=== PATIENT | male | born 1970 | race Caucasian/White ===

== ENCOUNTER 2020-07-09 17:20 | Inpatient (IN) | payer OTHER ==
[~2020-07-09] VITALS: Ht 188 cm; Wt 143.8 kg
[2020-07-09] MEDS ORDERED: SODIUM CHLORIDE 0.9% 500 ML IV ONE (18:00)
[2020-07-09] MEDS ORDERED: dilTIAZem 25 MG/5 ML VIAL IV ONE ×3 (18:00→20:15)
[2020-07-09 18:57] LABS: Basophils # (auto) 0.1 10 ^3/uL (0-0.2); Basophils % (auto) 0.8 % (0.0-2.0); Eosinophils # (auto) 0.1 10 ^3/uL (0-0.8); Eosinophils % (auto) 0.8 % (0.0-7.0); Hematocrit 46.7 % (41.0-53.0); Hemoglobin 15.4 g/dL (13.5-17.5); Lymphocytes # (auto) 3.2 10 ^3/uL (0.4-5.4); Lymphocytes % (auto) 20.1 % (10.0-50.0); Mean Corpuscular Hgb Conc. 33.1 g/dL (32.0-36.0); Mean Corpuscular Volume 81.6 fL (80.0-100.0); Monocytes # (auto) 1.3 10 ^3/uL (0-1.3); Neutrophils # (auto) 11.3 10 ^3/uL (1.6-8.6); Neutrophils % (auto) 70.3 % (37.0-80.0); Nucleated Red Blood Cells % 0.1 %; Red Blood Cells 5.72 10^6/uL (4.5-5.90); White Blood Cell 16.1 10^3/uL (4.4-10.8)
[2020-07-09 19:12] LABS: Calcium 9.2 mg/dL (8.5-10.1); Potassium 4.3 mmol/L (3.5-5.1)
[2020-07-09 19:18] LABS: INR 1.17 (0.9-1.15); Partial Thromboplastin Time 22.6 sec (23.0-31.2)
[2020-07-09 19:20] LABS: Albumin 3.6 g/dL (3.4-5.0); BUN/Creatinine Ratio 20.6
[2020-07-09] MEDS ORDERED: dilTIAZem 125mg/125ml BAG KIT 125 ML IV ONE (20:15)
[2020-07-09] MEDS ORDERED: MORPHINE SULFATE INJECTION 2 MG/ML SYRG IV PRN (21:30)
[2020-07-09] MEDS ORDERED: ONDANSETRON HCL 4 MG/2 ML VIAL IV PRN (21:30)
[2020-07-09] MEDS ORDERED: dilTIAZem 125mg/125ml BAG KIT 125 ML IV SCH (21:30)
[2020-07-09] MEDS ORDERED: ACETAMINOPHEN 325 MG TAB PO PRN (21:30)
[2020-07-09] MEDS ORDERED: NITROGLYCERIN 0.4 MG SL TAB SL PRN (21:30)
[2020-07-09] MEDS ORDERED: TEMAZEPAM 15 MG CAP PO PRN (21:30)
[2020-07-09] MEDS: ATORVASTATIN 20 MG TAB PO SCH (22:09)
[2020-07-09] MEDS: METOPROLOL TARTRATE 25 MG TAB PO SCH (22:10)
[2020-07-09] MEDS: FAMOTIDINE 20 MG TAB PO SCH (22:10)
[2020-07-09] MEDS ORDERED: FUROSEMIDE 20 MG/2 ML VIAL IV ONE (22:15)
[2020-07-09 23:10] VITALS: BP 128/73
[2020-07-09 23:23] VITALS: BP 128/73
[2020-07-09 23:30] VITALS: BP 139/75
[2020-07-10] VITALS (14 sets, daily range): BP systolic 111–141; BP diastolic 67–98
[2020-07-10 05:42] LABS: Basophils # (auto) 0.1 10 ^3/uL (0-0.2); Basophils % (auto) 1.1 % (0.0-2.0); Eosinophils # (auto) 0.1 10 ^3/uL (0-0.8); Eosinophils % (auto) 0.5 % (0.0-7.0); Hematocrit 43.4 % (41.0-53.0); Hemoglobin 14.6 g/dL (13.5-17.5); Lymphocytes # (auto) 2.4 10 ^3/uL (0.4-5.4); Lymphocytes % (auto) 18.8 % (10.0-50.0); Mean Corpuscular Hemoglobin 27.4 pg (28.0-32.0); Mean Corpuscular Hgb Conc. 33.7 g/dL (32.0-36.0); Mean Corpuscular Volume 81.4 fL (80.0-100.0); Monocytes % (auto) 7.4 % (0.0-12.0); Neutrophils # (auto) 9.3 10 ^3/uL (1.6-8.6); Neutrophils % (auto) 72.2 % (37.0-80.0); Nucleated Red Blood Cells % 0.1 %; Red Blood Cells 5.33 10^6/uL (4.5-5.90); Red Cell Distribution Width 14.9 % (11.8-14.3); White Blood Cell 12.9 10^3/uL (4.4-10.8)
[2020-07-10 05:52] LABS: Potassium 4.3 mmol/L (3.5-5.1)
[2020-07-10 06:12] LABS: Albumin 3.4 g/dL (3.4-5.0); BUN/Creatinine Ratio 19.4; Bilirubin, Total 1.8 mg/dL (0.2-1.0); Calcium 8.6 mg/dL (8.5-10.1); Total Protein 6.5 g/dL (6.4-8.2)
[2020-07-10] MEDS: METOPROLOL TARTRATE 25 MG TAB PO SCH ×2 (08:13→22:00)
[2020-07-10] MEDS: FAMOTIDINE 20 MG TAB PO SCH ×2 (08:14→22:00)
[2020-07-10] MEDS ORDERED: DIGOXIN (250MCG/ML) 2 ML AMPULE IV ONE (09:00)
[2020-07-10] MEDS: ENOXAPARIN SOD 150 MG/1 ML SYRINGE SC SCH ×2 (09:34→22:00)
[2020-07-10] MEDS: DIGOXIN (250MCG/ML) 2 ML AMPULE IV SCH ×3 (09:35→23:00)
[2020-07-10 09:54] LABS: Cholesterol 146 mg/dL (< 200); HDL Cholesterol 32 mg/dL (40-59); LDL Cholesterol 108 mg/dL (< 100); Triglycerides 70 mg/dL (< 150)
[2020-07-10] MEDS ORDERED: FUROSEMIDE 40 MG TAB PO SCH (10:00)
[2020-07-10] MEDS ORDERED: ASPirin 81 mg TAB PO SCH (10:00)
[2020-07-10] MEDS ORDERED: ADENOSINE 126 MG in GIVE UN-DILUTED 0 ML IV ONE (12:30)
[2020-07-10] MEDS ORDERED: IOHEXOL 350 MG/ML 100ML IJ ONE (12:52)
[2020-07-10 14:14] LABS: Urine Bacteria NONE SEEN /hpf (None Seen); Urine Blood Negative /uL (Negative); Urine Budding Yeast OCCASIONAL /hpf (None Seen); Urine Specific Gravity 1.009 (1.001-1.035); Urine WBC 1 /hpf (0 - 3)
[2020-07-10 14:27] LABS: Alcohol, Urine < 3.0 mg/dL (0-10); Amphetamine Screen, Urine NEGATIVE (NEGATIVE); Barbiturate Scree,Urine NEGATIVE (NEGATIVE); Benzodiazephine Screen, Urine NEGATIVE (NEGATIVE); Cannabinoid Screen, Urine NEGATIVE (NEGATIVE); Cocaine Screen, Urine NEGATIVE (NEGATIVE); Opiate Scree,Urine NEGATIVE (NEGATIVE); Phencyclidine Screen, Urine NEGATIVE (NEGATIVE)
[2020-07-10] MEDS ORDERED: OPTISON 3ml Vial for INJ IV ONE (16:05)
[2020-07-10] MEDS: ATORVASTATIN 20 MG TAB PO SCH (22:00)
[2020-07-11 05:00] VITALS: BP 127/87
[2020-07-11 05:21] LABS: Basophils # (auto) 0.1 10 ^3/uL (0-0.2); Basophils % (auto) 0.9 % (0.0-2.0); Eosinophils # (auto) 0.1 10 ^3/uL (0-0.8); Eosinophils % (auto) 1.1 % (0.0-7.0); Hematocrit 44.5 % (41.0-53.0); Hemoglobin 15.1 g/dL (13.5-17.5); Lymphocytes # (auto) 1.9 10 ^3/uL (0.4-5.4); Lymphocytes % (auto) 16.7 % (10.0-50.0); Mean Corpuscular Hemoglobin 27.2 pg (28.0-32.0); Mean Corpuscular Hgb Conc. 33.9 g/dL (32.0-36.0); Mean Corpuscular Volume 80.4 fL (80.0-100.0); Monocytes # (auto) 0.9 10 ^3/uL (0-1.3); Monocytes % (auto) 7.6 % (0.0-12.0); Neutrophils # (auto) 8.5 10 ^3/uL (1.6-8.6); Neutrophils % (auto) 73.7 % (37.0-80.0); Nucleated Red Blood Cells % 0.1 %; Red Blood Cells 5.53 10^6/uL (4.5-5.90); Red Cell Distribution Width 14.7 % (11.8-14.3); White Blood Cell 11.5 10^3/uL (4.4-10.8)
[2020-07-11 05:34] LABS: INR 1.14 (0.9-1.15); Partial Thromboplastin Time 26.7 sec (23.0-31.2)
[2020-07-11 06:02] LABS: Albumin 3.3 g/dL (3.4-5.0); BUN/Creatinine Ratio 15.4; Calcium 8.4 mg/dL (8.5-10.1); Potassium 3.9 mmol/L (3.5-5.1)
[2020-07-11 06:05] LABS: Bilirubin, Total 1.6 mg/dL (0.2-1.0); Total Protein 6.5 g/dL (6.4-8.2)
[2020-07-11 09:00] VITALS: BP 143/89
[2020-07-11] MEDS ORDERED: SODIUM CHLORIDE 0.9% 1,000 ML IV SCH ×2 (09:45→13:15)
[2020-07-11] MEDS: ENOXAPARIN SOD 150 MG/1 ML SYRINGE SC SCH ×2 (10:00→21:38)
[2020-07-11] MEDS ORDERED: ACETYLCYSTEINE ORAL for CIN 20%(200MG/ML) 4ML PO ONE (10:00)
[2020-07-11] MEDS: FUROSEMIDE 40 MG/4 ML VIAL IV SCH (10:00)
[2020-07-11] MEDS: METOPROLOL TARTRATE 25 MG TAB PO SCH ×2 (11:36→21:38)
[2020-07-11] MEDS: DIGOXIN 0.125 MG TAB PO SCH (11:36)
[2020-07-11] MEDS: ASPirin 81 mg TAB PO SCH (11:36)
[2020-07-11] MEDS: FAMOTIDINE 20 MG TAB PO SCH ×2 (11:37→21:38)
[2020-07-11] MEDS ORDERED: IODIXANOL 320MG/ML 100ML BTL IV ONE (12:31)
[2020-07-11] MEDS ORDERED: LIDOCAINE 2%HCL (LOCAL ANESTH.) INJ 20ML MDV ONE (12:31)
[2020-07-11 13:00] VITALS: BP 135/93
[2020-07-11] MEDS ORDERED: VERAPAMIL 2.5MG/ML INJ 2ML VIAL IV ONE (13:04)
[2020-07-11] MEDS ORDERED: HEPARIN SODIUM (PORCINE) 5000 UNITS/ML 1ML VIAL ONE (13:04)
[2020-07-11] MEDS ORDERED: fentaNYL CITRATE 100 MCG/2 ML VL ONE (13:04)
[2020-07-11] MEDS ORDERED: MIDAZOLAM HCL 2MG/2ML 2ml VIAL (1mg/ml) ONE (13:04)
[2020-07-11] MEDS ORDERED: ANGIOMAX 250 MG VIAL IV ONE (13:04)
[2020-07-11] MEDS ORDERED: SODIUM CHL 0.9% 0 ML ONE (13:04)
[2020-07-11 17:00] VITALS: BP 155/87
[2020-07-11] MEDS: ATORVASTATIN 20 MG TAB PO SCH (21:37)
[2020-07-11] MEDS: ACETYLCYSTEINE ORAL for CIN 20%(200MG/ML) 4ML PO SCH (21:38)
[2020-07-11 22:47] VITALS: BP_SYST 133; BP_SYST 163; BP_DIAS 76; BP_DIAS 81
[2020-07-12 05:21] VITALS: BP 129/94
[2020-07-12 05:30] LABS: Basophils # (auto) 0.1 10 ^3/uL (0-0.2); Eosinophils # (auto) 0.1 10 ^3/uL (0-0.8); Eosinophils % (auto) 1.3 % (0.0-7.0); Hematocrit 45.7 % (41.0-53.0); Hemoglobin 15.2 g/dL (13.5-17.5); Lymphocytes # (auto) 2.1 10 ^3/uL (0.4-5.4); Lymphocytes % (auto) 20.1 % (10.0-50.0); Mean Corpuscular Hgb Conc. 33.3 g/dL (32.0-36.0); Monocytes # (auto) 0.8 10 ^3/uL (0-1.3); Neutrophils # (auto) 7.1 10 ^3/uL (1.6-8.6); Neutrophils % (auto) 69.6 % (37.0-80.0); Nucleated Red Blood Cells % 0.5 %; Red Blood Cells 5.64 10^6/uL (4.5-5.90); Red Cell Distribution Width 14.7 % (11.8-14.3); White Blood Cell 10.2 10^3/uL (4.4-10.8)
[2020-07-12 05:39] LABS: Potassium 3.9 mmol/L (3.5-5.1)
[2020-07-12 05:45] LABS: BUN/Creatinine Ratio 14.9; Calcium 8.5 mg/dL (8.5-10.1)
[2020-07-12 09:17] VITALS: BP 152/86
[2020-07-12] MEDS: FUROSEMIDE 40 MG/4 ML VIAL IV SCH (09:39)
[2020-07-12] MEDS: DIGOXIN 0.125 MG TAB PO SCH (09:40)
[2020-07-12] MEDS: ASPirin 81 mg TAB PO SCH (09:40)
[2020-07-12] MEDS: SACUBITRIL-VALSARTAN 24mg/26mg TAB PO SCH ×2 (09:40→21:55)
[2020-07-12] MEDS: METOPROLOL TARTRATE 25 MG TAB PO SCH ×2 (09:41→22:15)
[2020-07-12] MEDS: ENOXAPARIN SOD 150 MG/1 ML SYRINGE SC SCH (09:42)
[2020-07-12] MEDS: ACETYLCYSTEINE ORAL for CIN 20%(200MG/ML) 4ML PO SCH ×2 (09:42→22:15)
[2020-07-12] MEDS: FAMOTIDINE 20 MG TAB PO SCH ×2 (09:42→22:15)
[2020-07-12] MEDS ORDERED: AMIODARONE HCL 200 MG TAB PO ONE (10:30)
[2020-07-12] MEDS ORDERED: AMIODARONE HCL 150 MG in D5W 5% 100 ML IV ONE (10:30)
[2020-07-12 13:24] VITALS: BP 98/73
[2020-07-12 17:00] VITALS: BP 129/80
[2020-07-12] MEDS: SPIRONOLACTONE 25 MG TAB PO SCH (18:27)
[2020-07-12] MEDS: AMIODARONE HCL 200 MG TAB PO SCH (21:54)
[2020-07-12] MEDS: APIXABAN 5 MG TAB PO SCH (21:55)
[2020-07-12] MEDS: ATORVASTATIN 20 MG TAB PO SCH (21:56)
[2020-07-12 22:00] VITALS: BP 113/79
[2020-07-13 04:57] LABS: Basophils # (auto) 0.1 10 ^3/uL (0-0.2); Eosinophils # (auto) 0.2 10 ^3/uL (0-0.8); Mean Corpuscular Hgb Conc. 33.7 g/dL (32.0-36.0); Monocytes # (auto) 0.9 10 ^3/uL (0-1.3); Nucleated Red Blood Cells % 0.2 %
[2020-07-13 04:59] LABS: Basophils % (auto) 1.2 % (0.0-2.0); Eosinophils % (auto) 1.4 % (0.0-7.0); Hematocrit 47.9 % (41.0-53.0); Hemoglobin 16.1 g/dL (13.5-17.5); Lymphocytes # (auto) 2.3 10 ^3/uL (0.4-5.4); Lymphocytes % (auto) 19.6 % (10.0-50.0); Mean Corpuscular Volume 80.2 fL (80.0-100.0); Monocytes % (auto) 7.7 % (0.0-12.0); Neutrophils # (auto) 8.3 10 ^3/uL (1.6-8.6); Neutrophils % (auto) 70.1 % (37.0-80.0); Red Blood Cells 5.97 10^6/uL (4.5-5.90); Red Cell Distribution Width 14.8 % (11.8-14.3); White Blood Cell 11.8 10^3/uL (4.4-10.8)
[2020-07-13 05:00] VITALS: BP 122/80
[2020-07-13 05:13] LABS: Albumin 3.2 g/dL (3.4-5.0); Calcium 8.8 mg/dL (8.5-10.1)
[2020-07-13 05:17] LABS: BUN/Creatinine Ratio 13.5; Bilirubin, Total 1.4 mg/dL (0.2-1.0); Total Protein 6.8 g/dL (6.4-8.2)
[2020-07-13] MEDS: SPIRONOLACTONE 25 MG TAB PO SCH ×2 (05:31→17:07)
[2020-07-13] MEDS: FUROSEMIDE 40 MG/4 ML VIAL IV SCH (09:41)
[2020-07-13] MEDS: ASPirin 81 mg TAB PO SCH (09:41)
[2020-07-13] MEDS: AMIODARONE HCL 200 MG TAB PO SCH (09:41)
[2020-07-13] MEDS: DIGOXIN 0.125 MG TAB PO SCH (09:42)
[2020-07-13] MEDS: APIXABAN 5 MG TAB PO SCH ×2 (09:42→22:05)
[2020-07-13] MEDS: SACUBITRIL-VALSARTAN 24mg/26mg TAB PO SCH ×2 (09:42→22:05)
[2020-07-13] MEDS: METOPROLOL TARTRATE 25 MG TAB PO SCH ×2 (09:43→22:06)
[2020-07-13] MEDS: FAMOTIDINE 20 MG TAB PO SCH ×2 (09:43→22:06)
[2020-07-13 09:57] VITALS: BP 125/90
[2020-07-13 13:00] VITALS: BP 107/66
[2020-07-13 17:00] VITALS: BP 111/76
[2020-07-13 22:00] VITALS: BP 127/68
[2020-07-13] MEDS: ATORVASTATIN 20 MG TAB PO SCH (22:05)
[2020-07-13] MEDS: MAGNESIUM OXIDE 400 MG TAB PO SCH (22:06)
[2020-07-14 05:00] VITALS: BP 103/68
[2020-07-14 05:31] LABS: Basophils # (auto) 0.1 10 ^3/uL (0-0.2); Eosinophils # (auto) 0.2 10 ^3/uL (0-0.8); Monocytes % (auto) 7.7 % (0.0-12.0)
[2020-07-14 05:34] LABS: Basophils % (auto) 0.9 % (0.0-2.0); Eosinophils % (auto) 1.2 % (0.0-7.0); Hemoglobin 16.8 g/dL (13.5-17.5); Lymphocytes # (auto) 2.7 10 ^3/uL (0.4-5.4); Lymphocytes % (auto) 19.7 % (10.0-50.0); Mean Corpuscular Hemoglobin 26.6 pg (28.0-32.0); Mean Corpuscular Hgb Conc. 32.9 g/dL (32.0-36.0); Mean Corpuscular Volume 80.9 fL (80.0-100.0); Neutrophils # (auto) 9.7 10 ^3/uL (1.6-8.6); Neutrophils % (auto) 70.5 % (37.0-80.0); Nucleated Red Blood Cells % 0.2 %; Red Cell Distribution Width 14.9 % (11.8-14.3); White Blood Cell 13.7 10^3/uL (4.4-10.8)
[2020-07-14 05:44] LABS: Potassium 4.3 mmol/L (3.5-5.1)
[2020-07-14] MEDS: SPIRONOLACTONE 25 MG TAB PO SCH (06:43)
[2020-07-14] MEDS: FUROSEMIDE 40 MG/4 ML VIAL IV SCH (08:55)
[2020-07-14] MEDS: FAMOTIDINE 20 MG TAB PO SCH (08:55)
[2020-07-14] MEDS: MAGNESIUM OXIDE 400 MG TAB PO SCH (08:57)
[2020-07-14] MEDS: SACUBITRIL-VALSARTAN 24mg/26mg TAB PO SCH (08:57)
[2020-07-14] MEDS: ASPirin 81 mg TAB PO SCH (08:58)
[2020-07-14 08:59] VITALS: BP 118/78
[2020-07-14] MEDS: METOPROLOL TARTRATE 25 MG TAB PO SCH (09:03)
[2020-07-14] MEDS: APIXABAN 5 MG TAB PO SCH (09:03)
[2020-07-14] MEDS ORDERED: DIGOXIN 0.25 MG TAB PO SCH (10:00)
[2020-07-14 13:00] VITALS: BP 105/70
[2020-07-14 15:50] VITALS: BP 108/72
[2020-07-14 17:01] VITALS: BP 106/73
== END 2020-07-14 17:15 | disposition home or self-care (01) | DRG 286 ==
LOC: ER 17:20 → TELE 21:16 → DOU IN ICU 23:26 → TELE-CENTR 07-10 12:33
PROVIDERS: ADMIT Nurse Practitioner; ATTEND Internal Medicine
PROC: 4A023N7 Measurement of Cardiac Sampling and Pressure, Left Heart, Percutaneous Approach (ICD-10-PCS; principal; 2020-07-11)
PROC: B211YZZ Fluoroscopy of Multiple Coronary Arteries using Other Contrast (ICD-10-PCS; 2020-07-11)
PROC: B215YZZ Fluoroscopy of Left Heart using Other Contrast (ICD-10-PCS; 2020-07-11)
DX: I13.0 Hypertensive heart and chronic kidney disease with heart failure and stage 1 through stage 4 chronic kidney disease, or unspecified chronic kidney disease (principal); I50.43 Acute on chronic combined systolic (congestive) and diastolic (congestive) heart failure; N17.0 Acute kidney failure with tubular necrosis; D68.9 Coagulation defect, unspecified; Z68.41 Body mass index [BMI] 40.0-44.9, adult; I48.92 Unspecified atrial flutter; I48.91 Unspecified atrial fibrillation; E66.01 Morbid (severe) obesity due to excess calories; E78.5 Hyperlipidemia, unspecified; N18.9 Chronic kidney disease, unspecified; J45.909 Unspecified asthma, uncomplicated; Z20.822 Contact with and (suspected) exposure to COVID-19; Z79.01 Long term (current) use of anticoagulants; Z82.49 Family history of ischemic heart disease and other diseases of the circulatory system; Z87.891 Personal history of nicotine dependence
CPT/HCPCS: 36415; 71045; 71275; 78452; 80048; 80053; 80061; 80307; 81001; 83735; 83880; 84443; 84484; 85025; 85379; 85610; 85730; 86850; 86900; 86901; 87040; 87081; 87426; 93005; 93017; 93306; 93458; 93970; 96361; 96365; 96376; 99152; G0378; J0153; J2250; J7060; Q9956; Q9967

== ENCOUNTER → 2020-09-12 | Outpatient (CLI) | payer OTHER | END | disposition home or self-care (01) | LOC: XYW 08:45 | PROVIDERS: ATTEND Internal Medicine | DX: I50.40 Unspecified combined systolic (congestive) and diastolic (congestive) heart failure (principal) | CPT/HCPCS: 93306 ==

== ENCOUNTER 2022-03-22 19:15 | Emergency (ER) | payer OTHER ==
[~2022-03-22] VITALS: Ht 180.3 cm; Wt 129.0 kg
[2022-03-23 01:45] VITALS: BP 139/84
== END 2022-03-23 01:45 | disposition home or self-care (01) ==
LOC: ER 19:16
DX: S60.222A Contusion of left hand, initial encounter (principal); I11.0 Hypertensive heart disease with heart failure; I50.9 Heart failure, unspecified; I48.91 Unspecified atrial fibrillation; E78.5 Hyperlipidemia, unspecified; Z90.89 Acquired absence of other organs; Z87.891 Personal history of nicotine dependence; V43.52XA Car driver injured in collision with other type car in traffic accident, initial encounter; Y93.89 Activity, other specified; Y92.410 Unspecified street and highway as the place of occurrence of the external cause; Y99.8 Other external cause status
CPT/HCPCS: 73120

== ENCOUNTER → 2022-03-25 | Outpatient (CLI) | payer OTHER | END | disposition home or self-care (01) | LOC: XYW 12:17 | PROVIDERS: ATTEND Internal Medicine | DX: I35.8 Other nonrheumatic aortic valve disorders (principal); I50.22 Chronic systolic (congestive) heart failure | CPT/HCPCS: 93306 ==

== ENCOUNTER → 2023-04-27 | Outpatient (CLI) | payer OTHER ==
[2023-04-27 12:13] LABS: Basophils # (auto) 0.1 10 ^3/uL (0-0.2); Basophils % (auto) 0.9 % (0.0-2.0); Eosinophils # (auto) 0.1 10 ^3/uL (0-0.8); Eosinophils % (auto) 0.9 % (0.0-7.0); Hemoglobin 15.1 g/dL (13.5-17.5); Lymphocytes # (auto) 1.8 10 ^3/uL (0.4-5.4); Lymphocytes % (auto) 20.1 % (10.0-50.0); Mean Corpuscular Hemoglobin 28.1 pg (28.0-32.0); Mean Corpuscular Hgb Conc. 33.6 g/dL (32.0-36.0); Mean Corpuscular Volume 83.4 fL (80.0-100.0); Monocytes # (auto) 1.1 10 ^3/uL (0-1.3); Monocytes % (auto) 12.7 % (0.0-12.0); Neutrophils # (auto) 5.9 10 ^3/uL (1.6-8.6); Neutrophils % (auto) 65.4 % (37.0-80.0); Nucleated Red Blood Cells % 0.4 %; Red Blood Cells 5.39 10^6/uL (4.5-5.90); Red Cell Distribution Width 12.8 % (11.8-14.3)
[2023-04-27 12:25] LABS: Chloride 106 mmol/L (98-107); Potassium 4.9 mmol/L (3.5-5.1); Sodium 141 mmol/L (136-145)
[2023-04-27 12:26] LABS: Anion Gap 6 (5-15); Calcium 9.9 mg/dL (8.5-10.1); Carbon Dioxide 29 mmol/L (20-30)
[2023-04-27 12:31] LABS: BUN/Creatinine Ratio 24.4 (10.0-20.0); Blood Urea Nitrogen 19 mg/dL (9-23); Glucose 107 mg/dL (74-106)
== END | disposition home or self-care (01) ==
LOC: LAB 11:57
PROVIDERS: ATTEND Emergency Medicine
DX: I50.9 Heart failure, unspecified (principal); R06.00 Dyspnea, unspecified
CPT/HCPCS: 36415; 80048; 85025